=== PATIENT | male | born 1965 | race Caucasian/White ===

== ENCOUNTER 2021-07-22 11:03 | Outpatient (CLI) | payer MEDICAID, SELFPAY ==
[2021-07-22 12:10] LABS: Absolute Lymphocyte Count 1.22 X10^3/uL (0.83-4.51); Absolute Neutrophil Count 4.2 X10^3/uL (2.0-7.7); Basophil# 0.04 X10^3/uL; Basophil% 0.6 % (0-1); Eosinophil# 0.17 X10^3/uL; Eosinophils% 2.7 % (0-5); Hematocrit 43.7 % (40-54); Lymphocyte # 1.22 X10^3/ul (0.83-4.51); Lymphocyte % 19.5 % (19-41); Mean Corp Hgb Conc 34.3 g/dL (32-36); Mean Corpuscular Hgb 29.7 pg (27.0-32.0); Mean Corpuscular Volume 86.5 fL (80-94); Mean Platelet Vol. 9.8 fl (6.2-12.0); Monocyte# 0.57 X10^3/uL; Monocyte% 9.1 % (0-10); NRBC Flagged by Analyzer 0 % (0-5); Neutrophil # 4.24 X10^3/uL (2.7-7.7); Neutrophil % 67.8 % (47-70); Platelet Count 223 K/mm3 (150-450); RBC Distribution Width CV 11.9 % (11.6-14.6); RBC Distribution Width SD 37.8 fl (35.1-43.9); Red Blood Count 5.05 M/mm3 (4.6-6.2); White Blood Count 6.3 K/mm3 (4.4-11.0)
[2021-07-22 12:26] LABS: AST(SGOT) 17 U/L (15-37); Alanine Aminotransfer ALT/SGPT 35 U/L (16-61); Albumin, Serum 3.6 g/dL (3.2-5.0); Alkaline Phosphatase 75 U/L (45-117); Anion Gap 4 (5-15); BUN 18 mg/dL (7-18); BUN/Creat Ratio 20.8 RATIO (10-20); Calcium,Total 8.9 mg/dL (8.5-10.1); Chloride 108 mmol/L (98-107); Cholesterol 185 mg/dL (200); Creatinine, Serum 0.86 mg/dL (0.70-1.30); EST Glomerular Filtration Rate 97 mL/min (>60); Est Glom Filt Rate - Afr Amer 117 mL/min (>60); Globulin 3.7 g/dL (2.2-4.2); Glucose 107 mg/dL (74-106); High Density Lipoprotein 37 mg/dL; Potassium 3.9 mmol/L (3.5-5.1); Protein, Total 7.3 g/dL (6.4-8.2); Sodium Level 139 mmol/L (136-145); Triglycerides 169 mg/dL; Very Low Density Lipoprotein 34 mg/dL (5-40)
== END 2021-07-22 23:59 | disposition home or self-care (01) ==
LOC: BIMLAB 11:03
PROVIDERS: PCP Internal Medicine; Visit Provider Internal Medicine
DX: K21.9 Gastro-esophageal reflux disease without esophagitis (principal); E66.3 Overweight
CPT/HCPCS: 36415; 80053; 80061; 85025

== ENCOUNTER → 2022-07-23 | Outpatient (CLI) | payer BC, SELFPAY ==
[2022-07-23 12:24] LABS: Absolute Lymphocyte Count 1.22 X10^3/uL (0.83-4.51); Absolute Neutrophil Count 3.1 X10^3/uL (2.0-7.7); Basophil# 0.05 X10^3/uL; Eosinophil# 0.19 X10^3/uL; Eosinophils% 3.7 % (0-5); Hematocrit 43.7 % (40-54); Lymphocyte # 1.22 X10^3/ul (0.83-4.51); Lymphocyte % 23.5 % (19-41); Mean Corp Hgb Conc 34.3 g/dL (32-36); Mean Corpuscular Hgb 30.4 pg (27.0-32.0); Mean Corpuscular Volume 88.5 fL (80-94); Mean Platelet Vol. 9.6 fl (6.2-12.0); Monocyte# 0.58 X10^3/uL; Monocyte% 11.2 % (0-10); NRBC Flagged by Analyzer 0 % (0-5); Neutrophil # 3.13 X10^3/uL (2.7-7.7); Neutrophil % 60.2 % (47-70); Platelet Count 226 K/mm3 (150-450); RBC Distribution Width CV 12.1 % (11.6-14.6); RBC Distribution Width SD 39.1 fl (35.1-43.9); Red Blood Count 4.94 M/mm3 (4.6-6.2); White Blood Count 5.2 K/mm3 (4.4-11.0)
[2022-07-23 13:00] LABS: ALB/GLOB Ratio 1.1 RATIO (0.9-2.4); AST(SGOT) 14 U/L (15-37); Alanine Aminotransfer ALT/SGPT 26 U/L (16-61); Albumin, Serum 3.6 g/dL (3.2-5.0); Alkaline Phosphatase 77 U/L (45-117); Anion Gap 7 (5-15); BUN 23 mg/dL (7-18); BUN/Creat Ratio 24.9 RATIO (10-20); Chloride 107 mmol/L (98-107); Cholesterol 158 mg/dL (200); Creatinine, Serum 0.92 mg/dL (0.70-1.30); EST Glomerular Filtration Rate 89 mL/min (>60); Est Glom Filt Rate - Afr Amer 108 mL/min (>60); Globulin 3.3 g/dL (2.2-4.2); Glucose 107 mg/dL (74-106); High Density Lipoprotein 35 mg/dL; PSA,Total - Annual Screen 9.92 ng/mL (0.00-4.00); Protein, Total 6.9 g/dL (6.4-8.2); Sodium Level 140 mmol/L (136-145); Triglycerides 95 mg/dL; Very Low Density Lipoprotein 19 mg/dL (5-40)
== END | disposition home or self-care (01) ==
LOC: BIMLAB 10:32
PROVIDERS: PCP Internal Medicine; Referring Provider Internal Medicine; Visit Provider Internal Medicine
DX: Z00.00 Encounter for general adult medical examination without abnormal findings (principal); Z12.5 Encounter for screening for malignant neoplasm of prostate
CPT/HCPCS: 36415; 80053; 80061; 84153; 85025; G0103

== ENCOUNTER → 2022-09-30 | Outpatient (CLI) | payer BC, SELFPAY | END | disposition home or self-care (01) | LOC: PAVLAB 09:40 | PROVIDERS: PCP Internal Medicine; Referring Provider Urology; Visit Provider Urology | DX: R97.20 Elevated prostate specific antigen [PSA] (principal) | CPT/HCPCS: 36415; 84153 ==

== ENCOUNTER → 2022-10-06 | Outpatient (CLI) | payer BC, SELFPAY ==
--- NOTE | 2022-10-06 08:15 | RAD_ITS ---
STUDY: X-RAY - ORBITS REASON FOR EXAM: Male, 57 years old. MRI CLEARANCE TECHNIQUE: 2 view(s) of the orbits were obtained. COMPARISON: None. FINDINGS: Normal bilateral orbits without a metallic orbital foreign body. Normal visualized facial bones. Mucosal thickening of the right maxillary sinus. The soft tissue structures are unremarkable. RAD/Orbits for Foreign Body IMPRESSION: No demonstrated metallic orbital foreign body. The patient is cleared for an MRI examination. Mucosal thickening of the right maxillary sinus. Electronically Signed: Zackary Odonnell MD at 8:48 EDT ,
--- NOTE | 2022-10-06 08:17 | MRI_ITS ---
STUDY: MR PELVIS WITH AND WITHOUT CONTRAST (PROSTATE) REASON FOR EXAM: Male, 57 years old. Elevated PSA TECHNIQUE: Standardized multiparametric prostate MRI with T1, T2, DWI/ADC sequences were obtained in 3 orthogonal planes, and dynamic contrast enhancement sequences. 19 ml of Clariscan contrast material was administered intravenously for the contrast portion of the examination. COMPARISON: None. FINDINGS: The prostate volume measures 37 mm3. The contours of the prostate gland are smooth. There is not mass effect on the bladder base. The transition zone is homogenous. PI-RADS DWI score 3 - Focal mildly hypointense on ADC and isointense/mildly hyperintense on high b-value DWI. PI-RADS T2W score 4 - Non-circumscribed, homogeneous, moderately hypointense, and 0.7 x 1.0 cm in greatest dimension. Contrast enhancement no early or contemporaneous enhancement; or diffuse multifocal enhancement NOT corresponding to a focal finding on T2W and/or DWI or focal ehancement responding to a lesion demonstrating features of BPH onT2WI (including features of extruded BPH in the PZ). The nodule is seen in the lateral right transitional zone towards the prostate gland base on image 15 series 9 and image 14 series 6. The peripheral zone is homogenous. PI-RADS DWI score 1 - No abnormality (normal) on ADC or high b-value DWI. PI-RADS T2W score 1 - Uniformaly hyperintense (normal). Contrast enhancement no early or contemporaneous enhancement; or diffuse multifocal enhancement NOT corresponding to a focal finding on T2W and/or DWI or focal enhancement responding to a lesion demonstrating features of BPH onT2WI (including features of extruded BPH in the PZ). The seminal vesicles demonstrate normal margins and T2 signal pattern. No mass lesion or invasion depicted. The rectoprostatic angles are normal. Urinary bladder is normal without wall thickening. The vascular structures of the are normal. The visualized hollow viscus structures are normal. No bone marrow edema or mass lesion depicted. MRI/Pelvis W/WO Contrast IMPRESSION: 1. PIRADS v2.1 2019 -- 4 - High (clinically significant cancer is likely). Electronically Signed: Duncan Lamb (Brooks), at 13:30 EDT Reading Location ID and State: / [place] , Service support ,
== END | disposition home or self-care (01) ==
LOC: MRI 07:44
PROVIDERS: PCP Internal Medicine; Referring Provider Urology; Visit Provider Urology
DX: R97.20 Elevated prostate specific antigen [PSA] (principal)
CPT/HCPCS: 70030; 72197; A9575

== ENCOUNTER → 2022-11-13 | Outpatient (CLI) | payer BC, SELFPAY ==
--- NOTE | 2022-11-13 | IMM_PTH ---
PATIENT: EUSEBIO JOYA LOC: [facility] U#:[id number] AGE/SX: 57/M ROOM: RE11/13/[address]: Dr. Rich Jackson MD : 1965 BED: DIS: 11/13/2022 SPEC #: [id number] RECD: 11/17/22 13:30 STATUS: NARAYAN REQ #: [id number] CEFERINO: 11/13/22 00:[address]: Rich Jackson DEPT: IMMUNOHISTOCHEMISTRY RECD BY: Cheryl Jimenez ENTERED: 11/17/22 13:31 SP TYPE: IMMUNO OTHR DR: Dr. Shante Zapata MD Tissues: B - PROSTATE RIGHT C - PROSTATE RIGHT Procedures: 34BE12 (add) P40 (add) 34BE12 (initial) PHYSICIAN & INSTITUTION [place] [phone] SPECIMEN INFORMATION: Tissue Source: B - Right prostate, mid, core biopsy, C - Right prostate, base, core biopsy Clinical Info: Elevated PSA Specimen Number: [id number] B & C CPT code: 73330, 90763 x3 METHODOLOGY: Deparaffinized sections of prefer/formalin-fixed tissue or PAP/DQ stained slides are incubated with monoclonal/polyclonal antibodies/oligonucleotide probes. Localization is made via biotin free immunoperoxidase method. Appropriate controls are performed and reacted as expected. Results on target cell population are indicated in the following table: RESULTS: ANTIBODY / CLONE RESULT Block B P40 (BC28) negative 34BE12 (34BE12) negative Block C P40 (BC28) negative 34BE12 (34BE12) negative These tests were developed and their performance characteristics determined by [facility]. They may not have been cleared or approved by the U.S. Food and Drug Administration. The FDA has determined that such clearance or approval is not necessary. The above immunohistochemical/dualISH markers are ordered and reviewed by the Pathologist. INTERPRETATION: B. Right prostate, mid, core biopsy: A minute focus of adenocarcinoma. C. Right prostate, base, core biopsy: Adenocarcinoma. MELISSA:samia 11/18/2022
--- NOTE | 2022-11-13 08:00 | PROSBIL_PTH ---
PATIENT: EUSEBIO JOYA LOC: [facility] U#:[id number] AGE/SX: 57/M ROOM: RE11/13/[address]: Dr. Rich Jackson MD : 1965 BED: DIS: 11/13/2022 SPEC #: [id number] RECD: 11/13/22 16:28 STATUS: NARAYAN REAltagracia #: [id number] CEFERINO: 11/13/22 08:[address]: Rich Jackson DEPT: SURGICAL PATHOLOGY RECD BY: Trisha Le ENTERED: 11/14/22 07:47 SP TYPE: PROST BX HILARY DR: Dr. Shante Zapata MD Tissues: A - PROSTATE RIGHT B - PROSTATE RIGHT C - PROSTATE RIGHT D - PROSTATE LEFT E - PROSTATE LEFT F - PROSTATE LEFT Procedures: PROSTATE BX HEADER OPERATION: Prostate biopsy PRE-OP DIAGNOSIS: Elevated PSA TISSUE SUBMITTED: A - Right apex, B - Right mid, C - Right base, D - Left apex, E - Left mid, F - Left base MICROSCOPIC DIAGNOSIS A. Right prostate, apex, core biopsy: Focal high-grade prostatic intraepithelial neoplasia (HGPIN). B. Right prostate, mid, core biopsy: A minute focus of prostatic adenocarcinoma. Amandeep grade: 3+3=6 Number of cores involved: 1/2 Proportion of tissue involved: <5% Perineural invasion: Not identified. Greatest tumor length: <0.1 cm Focal high-grade prostatic intraepithelial neoplasia (HGPIN). See comment. C. Right prostate, base, core biopsy: Prostatic adenocarcinoma. Amandeep grade: 3+3=6 Number of cores involved: 1/2 Proportion of tissue involved: ~5% Perineural invasion: Not identified. Greatest tumor length: 0.2 cm Focal high-grade prostatic intraepithelial neoplasia (HGPIN). See comment. D. Left prostate, apex, core biopsy: Prostatic adenocarcinoma. Taylor grade: 3+3=6 Number of cores involved: 1/1 Proportion of tissue involved: ~50% Perineural invasion: Not identified. Greatest tumor length: 0.5 cm E. Left prostate, mid, core biopsy: Prostatic adenocarcinoma. Taylor grade: 4+3=7 Number of cores involved: 1/1 Proportion of tissue involved: 40% Perineural invasion: Not identified. Greatest tumor length: 0.4 cm F. Left prostate, base, core biopsy: Focal high-grade prostatic intraepithelial neoplasia (HGPIN). SJ:samia 11/17/2022 COMMENT B & C. Immunohistochemistry ([id number]) supports the above diagnosis. Case has been reviewed in consultation with Dr. Gooden who concurs with the above diagnosis. IDC:SUNIL MICROSCOPIC DESCRIPTION Slides are reviewed. GROSS DESCRIPTION A - Received is one container designated prostate, right apex. The specimen consists of two elongated fragments of light costello-white soft tissue each measuring 1.0 cm in length and 0.1 cm in diameter. The specimen is totally submitted in one cassette. B - Received is one container designated prostate, right mid. The specimen consists of two elongated fragments of light costello-white soft tissue each measuring 1.0 cm in length and 0.1 cm in diameter. The specimen is totally submitted in one cassette. C - Received is one container designated prostate, right base. The specimen consists of two elongated fragments of light costello-white soft tissue each measuring 1.5 cm in length and 0.1 cm in diameter. The specimen is totally submitted in one cassette. D - Received is one container designated prostate, left apex. The specimen consists of one elongated fragment of light costello-white soft tissue measuring 1.0 cm in length and 0.1 cm in diameter. The specimen is totally submitted in one cassette. E - Received is one container designated prostate, left mid. The specimen consists of one elongated fragment of light costello-white soft tissue measuring 1.0 cm in length and 0.1 cm in diameter. The specimen is totally submitted in one cassette. F - Received is one container designated prostate, left base. The specimen consists of one elongated fragment of light costello-white soft tissue measuring 1.0 cm in length and 0.1 cm in diameter. The specimen is totally submitted in one cassette. / AM:samia 11/14/2022 TC:0 [facility]: [id number] x6
== END | disposition home or self-care (01) ==
LOC: LABSPEC 16:29
PROVIDERS: PCP Internal Medicine; Referring Provider Urology; Visit Provider Urology
DX: C61 Malignant neoplasm of prostate (principal); R97.20 Elevated prostate specific antigen [PSA]; N42.31 Prostatic intraepithelial neoplasia
CPT/HCPCS: 88305; 88341; 88342; G0416

== ENCOUNTER → 2022-11-27 | Outpatient (CLI) | payer BC, SELFPAY ==
--- NOTE | 2022-11-27 06:53 | CT_ITS ---
EXAM: CT Abdomen And Pelvis WO/W Contrast Injection HISTORY: PROSTATE CANCER, NO TX YET TECHNIQUE: Routine protocol CT abdomen pelvis. Without and with IV contrast. IV Contrast: 100 ML ISOVUE 370 . Oral Contrast: without. Sagittal and coronal images were reconstructed. RADIATION DOSAGE (If Supplied By Facility): CTDIvol = ( 16.14 ) mGy, DLP = ( 1949.21 ) mGycm Individualized dose optimization techniques were used for this CT. COMPARISON: MRI pelvis/prostate 10/06/2022. LIMITATIONS: None. FINDINGS: LOWER CHEST: 5 mm nodule right lower lobe. LIVER: Unremarkable. GALLBLADDER/BILE DUCTS: Unremarkable. PANCREAS: Unremarkable. SPLEEN: Unremarkable. ADRENAL GLANDS: Unremarkable. KIDNEYS / URETERS: Tiny cyst in the right kidney. Otherwise unremarkable. No hydronephrosis. BOWEL / MESENTERY: Scattered diverticula throughout the colon. No bowel obstruction. APPENDIX: Identified and normal. No evidence of acute appendicitis. PERITONEUM: No free air. No free fluid. VESSELS: Abdominal aorta is normal caliber. RETROPERITONEUM: Unremarkable. REPRODUCTIVE ORGANS: Prostate mildly enlarged. BLADDER: Unremarkable. ABDOMINAL WALL: Small left inguinal hernia contains only fat, no bowel. BONES: Degenerative changes of the lumbar spine. No suspicious lytic or blastic lesion. OTHER: None. CT/CT Abd/Pelvis W/WO Contrast IMPRESSION: 1. No acute intra-abdominal findings. 2. Right lower lobe 5 mm pulmonary nodule is indeterminate. Consider further imaging with CT chest for complete assessment. Electronically Signed: Tatyana Buenrostro MD at 19:29 EDT ,
== END | disposition home or self-care (01) ==
LOC: CT 06:52
PROVIDERS: PCP Internal Medicine; Referring Provider Urology; Visit Provider Urology
DX: C61 Malignant neoplasm of prostate (principal)
CPT/HCPCS: 74178; Q9967

== ENCOUNTER → 2022-12-04 | Outpatient (CLI) | payer BC, SELFPAY ==
--- NOTE | 2022-12-04 09:00 | NM_ITS ---
CLINICAL: Male, 57 years old. PROSTATE CANCER, NEW DX -- NO PATIENT COMPLAINTS WHOLE BODY NUCLEAR BONE SCAN TECHNIQUE: Following the IV administration of 25 mCi of Tc MDP, whole body bone imaging was performed with a gamma camera following a three hour delay. COMPARISON STUDIES : Comparison is made with prior CT scan of the abdomen pelvis dated November 27, 2022. FINDINGS: Mild increased uptake is seen at the level of both knee joints suggestive of mild degenerative change. NM/Bone Scan Whole Body IMPRESSION: No evidence of bony metastasis. Electronically Signed: Zackary Odonnell MD at 13:52 EDT ,
== END | disposition home or self-care (01) ==
LOC: NM 08:59
PROVIDERS: PCP Internal Medicine; Referring Provider Urology; Visit Provider Urology
DX: C61 Malignant neoplasm of prostate (principal)
CPT/HCPCS: 78306; A9500

== ENCOUNTER → 2022-12-05 | Outpatient (CLI) | payer BC, SELFPAY ==
--- NOTE | 2022-12-05 07:57 | CT_ITS ---
STUDY: CT CHEST WITHOUT CONTRAST REASON FOR EXAM: Male, 57 years old. Abnormal Finding on CT. Lung Nodule RADIATION DOSAGE (If Supplied By Facility): CTDIvol = ( 14.30 ) mGy, DLP = ( 553.78 ) mGycm TECHNIQUE: Transaxial imaging was performed without the administration of intravenous contrast material. Multiplanar coronal and sagittal images were reformatted. Individualized dose optimization techniques were used for this CT. COMPARISON: No relevant priors. FINDINGS: CHEST Benign-appearing bilateral axillary lymph nodes. This evidence of scarring at both lung apices. Stable 5 mm noncalcified nodule in the peripheral lateral aspect of the right lower lobe as seen on axial image #89. 3 mm noncalcified nodule is seen in the posterior aspect of the lingular segment of the left upper lobe. There is no demonstrated pleural abnormality. There are calcifications of the coronary arteries. Normal mediastinum. Normal hilar regions. Normal unenhanced pulmonary arteries. Normal aorta arch and descending thoracic aorta. There are degenerative changes of the thoracic spine. Small sliding hiatal hernia. CT/Chest without Contrast IMPRESSION: 5 mm noncalcified nodule in the peripheral lateral aspect of the right lower lobe as well as a 3 mm noncalcified nodule in the posterior aspect of the lingular segment of the left upper lobe. 12 month follow-up examination is recommended. Electronically Signed: Zackary Odonnell MD at 9:31 EDT ,
== END | disposition home or self-care (01) ==
LOC: CT 07:57
PROVIDERS: PCP Internal Medicine; Referring Provider Internal Medicine; Visit Provider Internal Medicine
DX: R93.5 Abnormal findings on diagnostic imaging of other abdominal regions, including retroperitoneum (principal); R91.1 Solitary pulmonary nodule
CPT/HCPCS: 71250

== ENCOUNTER 2023-02-04 07:55 | Observation (INO) | payer BC, SELFPAY ==
[2023-01-23 12:42] LABS: Hematocrit 41.4 % (40-54); Hemoglobin 13.9 g/dL (13.0-16.5); Mean Corp Hgb Conc 33.6 g/dL (32-36); Mean Corpuscular Hgb 30.2 pg (27.0-32.0); Mean Corpuscular Volume 89.8 fL (80-94); Platelet Count 200 K/mm3 (150-450); RBC Distribution Width SD 39.6 fl (35.1-43.9); Red Blood Count 4.61 M/mm3 (4.6-6.2); White Blood Count 6.1 K/mm3 (4.4-11.0)
[2023-02-04] VITALS (13 sets, daily range): BP systolic 107–138; BP diastolic 59–82; PULSE 56–77; RESP 12–16; TEMP 36.4–37.2; O2SAT 92–100; BMI 26.3
--- NOTE | 2023-02-04 | PROST_PTH ---
PATIENT: EUSEBIO JOYA LOC: [facility] U#:[id number] AGE/SX: 57/M ROOM: MT315 RE02/04/[address]: Dr. Rich Jackson MD : 1965 BED: 1 DIS: 02/05/2023 SPEC #: [id number] RECD: 02/04/23 11:42 STATUS: NARAYAN BOATENG #: [id number] CEFERINO: 02/04/23 00:[address]: Rich Jackson DEPT: SURGICAL PATHOLOGY RECD BY: Trisha Le ENTERED: 02/04/23 13:25 SP TYPE: PROSTATE OTHR DR: Dr. Shante Zapata MD Tissues: A - Lymph node of pelvis, NOS B - Lymph node of pelvis, NOS C - Prostate, NOS Procedures: Surgery Specimen Level V Surgery Specimen Level HEADER OPERATION: Robotic laparoscopic radical prostatectomy PRE-OP DIAGNOSIS: [place] 7 prostate cancer TISSUE SUBMITTED: A - Left pelvic lymph node, B - Right pelvic lymph node, C - Prostate MICROSCOPIC DIAGNOSIS A. Left pelvic lymph node, regional dissection: One lymph node, negative for metastatic carcinoma. B. Right pelvic lymph node, regional dissection: One lymph node, negative for metastatic carcinoma. C. Prostate, radical prostatectomy: Prostatic adenocarcinoma. See cancer summary in the comment section. SJ:samia 02/09/2023 COMMENT C. PROSTATE CANCER (RADICAL) SUMMARY: Procedure: Radical Prostatectomy Prostate Size: Weight: 42.2 gm Size: 3.5 cm transversely, 3.5 cm anterior-posteriorly and 3.5 cm craniocaudally Histologic Type: Acinar adenocarcinoma Histologic Grade: Grade group 2 (Amandeep score: 3+4=7) Tumor Quantitation: Estimated percentage of prostate involved by tumor: ~10% Tumor involves apical portion of the right lobe and measures 1.0 x 0.5 cm in greatest dimension (measured microscopically). Tumor involves apical and mid portion of the left lobe prostate and measures approximately 1.5 x 1.0 cm (measured microscopically). Extraprostatic Extension: Not identified Urinary Bladder Neck Invasion: Not identified Seminal Vesicle Invasion: Not identified Lymphvascular Invasion: Not identified Perineural Invasion: Present, focal Margins: Focally involved by invasive carcinoma. Linear length of positive margin: 3 mm Focality: Unifocal Location of prostate positive margin: Right apical Amandeep pattern at positive margin: 3+3=6 Treatment effect: No known presurgical therapy. Regional Lymph Nodes: Number of lymph nodes involved by carcinoma: 0 Total number of lymph nodes examined: 2 Additional Pathologic Findings: Chronic inflammation * Focal high-grade prostatic intraepithelial neoplasia (HGPIN). Ancillary Studies: Not performed Clinical History: Please make reference to previous specimen ([id number]) right prostate mid and base with diagnosis of prostatic adenocarcinoma and left prostate apex and mid with diagnosis of prostatic adenocarcinoma. PATHOLOGIC STAGE: pT2 pN0 pMx The above summary is in compliance with [employer] (CAP) Cancer Protocols Checklist and [place] [employer] Committee on Cancer (AJCC), Staging Manual, 8th Ed. Case has been reviewed in consultation with Dr. Gooden who concurs with the above diagnosis. IDC:AM MICROSCOPIC DESCRIPTION Slides are reviewed. GROSS DESCRIPTION A - Received in fixative is one container labeled with the patient's name and designated left pelvic lymph node. The specimen consists of a piece of yellow adipose tissue measuring 3.5 x 1.5 x 1.0 cm. One lymph node is identified. The entire specimen is submitted in two cassettes as follows: 1 - one bisected lymph node, 2 - rest of the specimen. B - Received in fixative is one container labeled with the patient's name and designated right pelvic lymph node. The specimen consists of a piece of yellow adipose tissue measuring 3.5 x 1.8 x 0.7 cm. One lymph node is identified. The specimen is bisected and submitted entirely in two cassettes. C - Received in fixative is one container labeled with the patient's name and designated prostate. The specimen consists of a radical prostatectomy specimen consisting of prostate and bilateral seminal vesicles and vas deferens. The specimen weighs 42.2 gm. The prostate measures 3.5 cm transversely, 3.5 cm anterior-posteriorly and 3.5 cm craniocaudally. The right seminal vesicle measures 3.5 x 2.0 x 1.0 cm and right vas deferens measures 3.5 cm in length and 0.5 cm in diameter. The left seminal vesicle measures 3.0 x 1.5 x 1.0 cm and the left vas deferens measures 3.0 cm in length and 0.5 cm in diameter. The prostate is inked as follows: anterior surface - yellow, posterior surface - black, right lateral surface - blue, left lateral surface - green. The bilateral seminal vesicles and vas deferens are inked as follows: Posterior surface bilateral seminal vesicle and vas deferens - black, anterior surface right seminal vesicle and vas deferens - blue and anterior left seminal vesicle and vas deferens - green. Sections do not reveal any mass lesion. [employer] sections are submitted in 19 cassettes as follows: 1 - right seminal vesicle and vas deferens, 2 - left seminal vesicle and vas deferens, 3 - apical (urethral) margin, enface, 4 & 5 - bladder neck and prostate base margin, enface, 6-9 - apical portion prostate, 10-13 - middle portion prostate, 14-19 - basal portion prostate. Almost 95% of the prostate is submitted. Sections are submitted after additional fixation. / SJ:rg 02/05/2023 TC:0 CPT: 12848 x2, 04249
[2023-02-04] MEDS: Lactated Ringers 1,000 ML 15 ML IV ×2 (06:40→10:31)
--- NOTE | 2023-02-04 07:51 | PCM.HP.STD ---
HPI - General General Date of Service: 02/04/23 Chief Complaint: Prostate cancer HPI Narrative EUSEBIO JOYA, is a 57 M who presents for radical prostatectomy he has Amandeep 7 prostate cancer plan for bilateral nerve sparing radical prostatectomy [facility] Medical History (Updated 01/23/23 @ 09:03 by Isamar Borrero) Abnormal abdominal CT scan Anxiety and depression Colon cancer screening Elevated blood pressure reading without diagnosis of hypertension Elevated PSA Esophageal abnormality GERD (gastroesophageal reflux disease) History of edema History of irregular heartbeat Lung nodule Lung nodule seen on imaging study Non-smoker Over weight Preventative health care Prostate cancer Restless legs Skin mole Sleep apnea Wears glasses Home Medications esomeprazole magnesium 20 mg tablet,delayed release 40 mg PO DAILY GERD 07/09/21 [History Last Taken Unknown] cholecalciferol (vitamin D3) 125 mcg (5,000 unit) tablet (Vitamin D3) 125 mcg PO DAILY SUPPLEMENT 01/23/23 [History Last Taken Unknown] Allergy/AdvReac Type Severity Reaction Status Date / Time lactose AdvReac PT UNSURE Verified 02/04/23 06:29 OF REACTION Family History Father Cancer pancreatic Heart disease Diabetes Mother Myocardial infarction, Onset Age: 83 Hypertension Hyperlipemia Surgical History (Updated 01/23/23 @ 09:03 by Isamar Borrero) History of colonoscopy History of esophagogastroduodenoscopy (EGD) History of hernia surgery History of tonsillectomy Social History Smoking Status: Never smoker alcohol intake: never substance use type: does not use what type of physical activity do you participate in: none Vital Signs Vital Signs Vital Signs: 02/04/23 06:31 02/04/23 06:31 Temperature 98.6 F Temperature Source Temporal Pulse Rate 58 L Respiratory Rate 16 Respiratory Pattern Normal Blood Pressure 121/80 H Blood Pressure Mean 93 Blood Pressure Source Monitor Blood Pressure Position Semi-Fowlers Blood Pressure Location Left Arm Pulse Ox 94 Oxygen Delivery Method Room Air Weight Weight: 93 kg Body Mass Index (BMI) 26.3 Results Lab / Micro Data 01/23/23 12:27
--- NOTE | 2023-02-04 07:54 | PCM.DC ---
Discharge Instructions Diet Discharge Diet: No restrictions Activity Discharge Activity: Return to Normal Activity Return to work on:: 03/18/23 Lifting Restrictions: no lifting for 6 weeks Dressing / Incision Catheter: Rodriguez to leg bag and Rodriguez to large bag Drain: [place] Follow Up Care Please Follow Up With: Rich Jackson MD When: 10 days, call for appt Test Results: Test results from this visit will be discussed in further detail at your follow-up appointment, if applicable. Discharge Plan Admission Primary Reason for Your Visit: prostate cancer Attending Provider: Rich Jackson Primary Care Provider: Shante Zapata Discharge Orders/Prescriptions Prescriptions: New ciprofloxacin HCl [Cipro] 500 mg tablet 500 mg PO BID Qty: 20 0RF docusate sodium [Colace] 100 mg capsule 100 mg PO BID Qty: 20 0RF oxycodone 5 mg tablet 5 mg PO Q6H PRN (Reason: pain) 7 Days Qty: 14 0RF No Action esomeprazole magnesium 20 mg tablet,delayed release (DR/EC) 40 mg PO DAILY cholecalciferol (vitamin D3) [Vitamin D3] 125 mcg (5,000 unit) tablet 125 mcg PO DAILY Referrals / Follow Up: Shante Zapata MD [Primary Care Provider] - Rich Jackson MD [Med Staff - Active Staff] - Disposition Disposition (needs filled in before D/C Order can be placed): Home, Self Care
[2023-02-04] MEDS: Cefazolin 2 GM in 0.9% Normal Saline (100mL Bag) 100 ML IV (08:04)
[2023-02-04] MEDS: Bupivacaine Mpf 0.5% 30 ML VIAL (10:43)
--- NOTE | 2023-02-04 10:58 | OP.PCM_ITS ---
Report of Operation Date of Procedure: 02/04/23 Pre-Operative Diagnosis: Prostate cancer Post-Operative Diagnosis: Same Surgery/Procedure Performed:: Laparoscopic robotic assisted radical prostatectomy bilateral nerve sparing and bilateral pelvic lymph node dissection Description of Surgical Findings:: Patient presented to the hospital for treatment of his prostate cancer with radical prostatectomy. In the preoperative setting we discussed the options of management for his prostate cancer including active surveillance, radiation treatments, radioactive seeds, and radical robotic prostatectomy. We discussed the side effects of surgery including the potential to lose erections. We discussed the potential to have bladder control problems with stress incontinence which can be temporary or permanent. We discussed the risk of the surgery including the risk of general anesthetic, risk of bleeding, risk of infection, and risk of formation of hernia either incisional hernia or inguinal hernia. After long discussion with the patient the preoperative setting and also reviewed this in the preop area patient signed the consent form and we proceeded with a radical prostatectomy. Patient was taken back to the operating room he was identified, time out procedure was performed and he was placed supine on the table he underwent general anesthesia with intubation. The abdomen was shaved prepped and draped in usual sterile fashion as well as the penis and testicles. A 16 Cameroonian catheter was placed into the bladder with clear return of urine. I then made an incision in the umbilicus and dissected down to the fascia advance a Veress needle into the peritoneal cavity and insufflated the peritoneal cavity with CO2 gas. I then placed a 12 mm trocar above the umbilicus. I then visualized the placement of the rest of the trochars, I placed a right arm robotic trocar, and air seal trocar, a suction port 5 mm trocar. And on the left side I placed 2 robotic arms. Once all the trochars were in placed the patient was put in steep Trendelenburg. And the robot was docked the arms were docked and then I placed the 0 degree camera through the robotic arm and also used a 30 degree camera during certain parts of the case. I used scissors in the right arm, prograsp in the third arm, and a bipolar in the second arm. Initial dissection was to free the sigmoid colon off the lateral wall this was done by meticulously dissecting off the peritoneum and the sigmoid colon off the left lateral wall. This then allowed the prograsp to retract the sigmoid colon out of the pelvis. I then went below the bladder and identified the vas deferens incised the peritoneum over the vas deferens and traced the vas deferens below the bladder to the prostate and identified the right and left vasa deferens. Below behind the vas deferens then the seminal vesicles were identified. I then dissected the seminal vesicle free using pinpoint electrocautery and then we identified the other seminal vesicle and then dissected this using pinpoint electrocautery I then elevated the vas deferens and several vesicles off the prostate and was able to sweep the Denonvilliers' fascia off the prostate posteriorly all the way up to the apex of the prostate. Working laterally I made sure I went as lateral as possible to sweep the Denonilliers' fascia off the posterior aspect of the prostate and worked my way back, I then transected the vas deferens and the left and right side the seminal vesicles were then dissected free. And then I pulled out of the pelvis. At this point the bladder was dropped creating the space of Retzius with the bladder on traction with the fourth arm. Using electrocautery I dissected in the anterior peritoneal fascia and then created the space of Retzius dissecting towards the prostate. The pelvic lymph node dissection was then performed both side. Rhe right pelvic lymph nodes the nodes that were taken on the right side extended from the right iliac artery lateral pelvic sidewall up to the junction of the artery and the lymph nodes and down to the obturator nerve and then also below the cold work operator nerve all the lymph nodes were removed during to remove those lymph nodes we used clips and electrocautery to control small blood vessels and also the control lymphatic. I then went to the left side and again did an extensive lymph node dissection starting of the left iliac artery extending the left iliac vein on the lateral sidewall down to the obturator nerve and the left side beyond the cold work operator nerve down further behind it cleaning out all the lymphatic tissue all this tissue was sent off as a specimen we use clips and electrocautery during the dissection. At the end we cleaned out all the lymphatic tissue on the right pelvic wall and all the lymphatic tissue in the left pelvic wall. The prostate was then cleaned of the fat over the prostate and the fourth arm was used to retract the bladder and place traction. I then identified the endopelvic fascia that was overlying the prostate on the right side I incised endopelvic fascia and wwept the levator muscles off the prostate all the way to the apex on the right side, I then worked my way anterior to the prostate then transected to the puboprostatic ligament and the underlying dorsal vein complex was not injured. I then went to the other side and identified the endopelvic fascia in the left side incised in a fashion the left side and swept the levator muscles off the prostate on the left side all the way up to the apex the puboprostatic ligament on the left side was then dissected and transected I then freed up the fascia overlying the dorsal vein complex. I then used the prograsp to encircled the dorsal vein complex with the prograsp and then switched over to the right and left needle water taxi driver and suture ligated the dorsal vein complex above the prograsp. The prograsp was then placed back in the bladder and put back on traction I then identified the junction between the bladder and the prostate and dissected down between the bladder and the prostate untilI came across the catheter we then dissected posteriorly to the bladder and prostate to free the prostate and the bladder off each other and the muscles between the bladder and the prostate was then cauterized to free up the bladder. I then went on top of the prostate and identified the endopelvic fascia on top of the prostate this was incised all the way to the apex and then we swept the endopelvic fascia off the prostate laterally and then identified the plane between endopelvic fascia and the prosthetic pseudocapsule and swept the fascia laterally until reaching the course of the neurovascular bundles and then released the neurovascular bundles off the prostate laterally all the way back in a retrograde fashion back to the junction of the pedicles then the prostate was placed on traction with the fourth arm pulling the prostate laterally identified the pedicle to the prostate between the seminal vesicles and the and the neurovascular bundle and this was taken using sequential small hemolocks. After the pedicle was taken the I then dissected underneath the prostate sweeping the neurovascular bundle off the prostate we able to follow the nice smooth plane between the neurovascular bundle and the pseudocapsule all the way to the apex once this was identified we swept this up all the way up to the apex and there was perfect nerve sparing on the right side. Then went to the left side the prostate identified the endopelvic fascia over the left side of the prostate I incised the endopelvic fascia all the way to the apex and then swept this off laterally I then released the neurovascular bundles on the left side of the prostate sweeping him off the prostate laterally I then elevated the prostate up up with the prostate and traction identified the pedicle to the prostate on the left side and then the pedicles taken with sequential Hem-o-davy clips I then was able to dissected the neurovascular bundle off the left posterior aspect the prostate this was a perfect dissection all the way up on the left side following the pseudocapsule all the way up the left side until we reached the apex of the prostate. After the both the neurovascular bundles has been swept off the posterior to the prostate I then went above and transected the dorsal vein complex there was minimal to no bleeding but then dissected down to the urethra and circumfencial dissected around the urethra I then switched the right and left arm with the needle drivers and I suture-ligated the dorsal vein complex again just to ensure that there was no bleeding from the dorsal vein complex. I then transected through the urethra with scissors and the prostate was then freed and released off the prostate bed and put an Endo Catch bag. At this point the bladder neck was reconstructed and then an anastomosis was performed between the prostate and the bladder with a 3 oh V-Loc stitch in a running fashion starting from the bladder neck at the 6 o'clock position working to the 12 o'clock position with continuous stitches to complete a perfect anastomosis between the bladder and the prostate. I then placed a new catheter into the bladder, an 18 Cameroonian [place] tip catheter flushed the bladder and there was no leakage from the anastomosis I put 10 cc in the balloon and pulled it up pulled back gently. I then ensured that there was no bleeding from the dorsal vein complex no bleeding from the neurovascular bundles FloSeal was placed as necessary once hemostasis was ensured and adequate then I placed the bladder back in position in the pelvis the prostate was exchanged to the camera port I closed the air seal port with a 10 12 Stew Lo stitch. And the extracted the prostate through the umbilicus. The robot was undocked all the ports were removed under direct visualization then closed the extraction site with 0 Vicryl with a CT1 needle once the extraction site was closed. I then closed all the incision with subcuticular stitches with 4-0 Monocryl and then bandages were placed on the incisions catheter was flushed to make sure it was draining well there was no clots and it was crystal clear patient's anesthetic was reversed he was extubated and taken back to the PACU in stable condition all the needles and sponges and instruments were accounted for. Blood loss was minimal and the drain was a 18 Cameroonian Huang catheter. No other surgical drain was left. I was present during the entire case. Surgeon: Rich Jackson Type of Anesthesia: General Drains: huang Estimated Blood Loss (mL): 150 Admit VTE Documentation VTE Present on Admission: No VTE Mechan Device Prophylaxis: SCD's VTE Pharm Prophylaxis ordered?: No
[2023-02-04] MEDS: 0.9% Normal Saline (1000mL) 1,000 ML 125 ML IV ×2 (14:10→23:09)
[2023-02-04] MEDS: Pantoprazole Sodium 40 MG Tablet PO (14:17)
[2023-02-04] MEDS: Ketorolac 30 MG/ML Syringe 15 MG IV ×2 (14:17→20:02)
[2023-02-04] MEDS: 0.9% Saline Lock 10 ML Syringe IV (14:18)
[2023-02-04] MEDS: Ciprofloxacin 400 MG/200 ML BAG 200 MG IV (15:27)
[2023-02-04] MEDS: Docusate Sodium 100 MG Capsule 200 MG PO (20:02)
[2023-02-05 01:39] VITALS: BP 125/64; PULSE 64; RESP 16; TEMP 36.8; O2SAT 99
[2023-02-05] MEDS: Ketorolac 30 MG/ML Syringe 15 MG IV ×2 (02:55→08:15)
[2023-02-05] MEDS: Ciprofloxacin 400 MG/200 ML BAG 200 MG IV (03:01)
[2023-02-05 05:39] VITALS: BP 125/62; PULSE 60; RESP 16; TEMP 36.9; O2SAT 97
[2023-02-05] MEDS: HYDROcodone Bitartrate/Apap 5/325 Tablet PO (06:49)
--- NOTE | 2023-02-05 07:30 | PCM.PN.GU ---
Subjective Subjective Postop day #1 status post radical prostatectomy patient is doing really well. Minimal pain catheter is in place urine is draining well Objective Data Objective Data Vital Signs: Vital Signs Temp Pulse Resp BP Pulse Ox O2 Del Method O2 Flow Rate 98.5 F 60 16 125/62 H 97 Room Air 2 02/05/23 05:39 02/05/23 05:39 02/05/23 05:39 02/05/23 05:39 02/05/23 05:39 02/05/23 05:39 02/04/23 13:39 Oxygen Flow Rate (L/min) 2 Oxygen Delivery Method Room Air Weight: 93 kg Body Mass Index (BMI) 26.3 Intake & Output: Intake and Output for Last 24 Hours 02/03/23 02/04/23 02/05/23 23:59 23:59 23:59 Intake Total 2707.92 / 2707.92 200 / 200 Output Total 550 / 1450 1600 / 1600 Balance 2157.92 / 1257.92 -1400 / -1400 Lab / Micro Data 01/23/23 12:27 Physical Exam Const alert and oriented x3 General Appearance: cooperative HEENT normocephalic, head/scalp atraumatic, EAC's normal and TM's normal bilaterally Eyes PERRL and EOMs intact bilaterally Pupil: sluggish Neck no lymphadenopathy, supple and no JVD General: trachea midline Lymph Lymphatic: no lymphadenopathy noted, lymphedema and lymphadenopathy Resp normal respiratory effort, normal air movement and clear to auscultation bilaterally Cardio regular rate, regular rhythm and peripheral pulses 2+ throughout GI soft to palpation, non-tender and non-distended Extremity normal capillary refill and no clubbing, cyanosis or edema General Extremity: no tenderness to palpation of joints or extremities Skin no rashes or lesions noted General Skin Exam: turgor normal Lesions: no lesions Rashes: no rashes Neuro CN's II-XII intact bilaterally Speech: speech normal Motor Exam: strength 5/5 throughout; Negative for general weakness Psych thought process normal, cooperative and affect normal Appearance: appropriate Assessment & Plan Assessment/Plan (1) Prostate cancer: PLAN: Discharge home today after breakfast. He can go home with a catheter home the leg bag prescriptions are in place follow-up in my office 2 weeks to remove the catheter
[2023-02-05] MEDS: 0.9% Normal Saline (1000mL) 1,000 ML 125 ML IV (07:56)
[2023-02-05] MEDS: Docusate Sodium 100 MG Capsule 200 MG PO (08:17)
[2023-02-05] MEDS: Pantoprazole Sodium 40 MG Tablet PO (08:17)
[2023-02-05 08:20] VITALS: BP 103/60; PULSE 58; RESP 16; TEMP 37; O2SAT 98
== END 2023-02-05 13:25 | disposition home or self-care (01) ==
LOC: SDC 13:07 → MS3 13:07
PROVIDERS: Anesthesiology; Admitting Provider Urology; PCP Internal Medicine; Referring Provider Urology; Visit Provider Urology
PROC: 0VT04ZZ Resection of Prostate, Percutaneous Endoscopic Approach (ICD-10-PCS; CPT 55866; principal; 2023-02-04 07:40)
DX: C61 Malignant neoplasm of prostate (principal); K21.9 Gastro-esophageal reflux disease without esophagitis; Z79.899 Other long term (current) drug therapy
CPT/HCPCS: 55866; 00865; 36415; 85027; 86850; 86900; 86901; 88307; 88309; 93005; 96361; 96365; 96366; 96375; 96376; 99221; J7030; J7120; A4216; G0378; J0744; J2405

== ENCOUNTER → 2023-03-30 | Outpatient (CLI) | payer BC, SELFPAY ==
[2023-03-30 10:27] LABS: PSA,Total- Diagnostic < 0.01 ng/mL (0.0-4.0)
== END | disposition home or self-care (01) ==
LOC: LAB 09:30
PROVIDERS: PCP Internal Medicine; Referring Provider Nurse Practitioner; Visit Provider Nurse Practitioner
DX: C61 Malignant neoplasm of prostate (principal)
CPT/HCPCS: 36415; 84153

== ENCOUNTER → 2023-06-29 | Outpatient (CLI) | payer BC, SELFPAY ==
--- OUTSIDE RECORDS SUMMARY | 2023-06-29 10:23 | XMS RPT_ITS | CCD ---
Author Name Unknown Address [address] [place] [address] Organization [facility] Results Test Name Value Interpretation Reference Range Facil ity Progress note 05-21-2021 Note Date & Type Note Facility 05-21-2021 Note HNO ID: [id number] Author: Johanna Bhardwaj APRN.[facility] Service: ? Author Type: Nurse Practitioner Type: Progress Notes Filed: 05/21/2021 10:52 AM Note Text: CC: Patient presents with: Cough: cold symptoms x 2 days HPI: Dio Joya is a 55 year old male who presents to the office with complaint of respiratory symptoms, head congestion and sinus symptoms for a few days. Symptoms are worsening Associated symptoms includes cough. Denies nausea, vomiting and diarrhea. Treatments tried include nothing so far. with no relief of symptoms. Sick contacts: unknown. History of asthma, frequent episodes of bronchitis, chronic bronchitis, bronchiectasis or COPD: No Smoker: No Seasonal/environmental allergies: No The ROS is otherwise negative. The patient's pmh, medications, allergies, and past visits are reviewed. PHYSICAL EXAM: BP 122/84 Pulse 67 Temp 36.6 ?C (97.8 ?F) (Tympanic) Wt 100.7 kg (222 lb) SpO2 97% General appearance: alert, cooperative, pleasant, in no acute distress Head: Normocephalic Eyes: EOM's intact, conjunctiva pink and moist, no icterus, sclera white, non-injected Heart: Negative. RRR without obvious murmur, gallop, or rubs. No ectopy. Lungs: clear to auscultation, without rales or wheeze, good air exchange PAST MEDICAL HISTORY Diagnosis Date - SPONTANEOUS TENSION PNEUMOTHORAX PAST SURGICAL HISTORY Procedure Laterality Date - REMOVAL OF TONSILS,<12 Y/O ALLERGIES Tree Nuts [Other] MEDICATIONS omeprazole (PRILOSEC) 20 mg capsule Take 40 mg by mouth once daily. pseudoeph/DM/guaifen/acetamin (TYLENOL COLD MULTI-SYMPTOM ORAL) Take by mouth as needed. Doxycycline Monohydrate 100 mg ORAL Tab Take one(1) tablet daily. FAMILY HISTORY Problem Relation Age of Onset - None Mother - Heart Father - Ischemic Heart Disease Father - Lipids Father - Diabetes Father Social History Tobacco Use - Smoking status: Never Smoker - Smokeless tobacco: Not on file Substance Use Topics - Alcohol use: No - Drug use: No ASSESSMENT/PLAN: 1. Suspected COVID-19 virus infection - ICD9: V01.79, ICD10: Z20.822 - COVID WITH FLUA+B, ROUTINE Sent home to quarantine. Potential red flag symptoms discussed with the patient. Reviewed appropriate action plan to take if red flag symptoms occur. Patient agreeable to treatment plan. Johanna Bhardwaj APRN.[facility] Summary Purpose Family History No Family History Records Found Advance Directives No Advanced Directives Records Found Additional Source Comments (unrecognized sect ion and content) No Status Records Found INFORMATION SOURCE (unrecogn ized section and content) FOR RECORDS PERTAINING TO PATIENTS WHO ARE OR HAVE BEEN ENROLLED IN A CHEMICAL DEPENDENCY/SUBSTANCEABUSE PROGRAM, SOME INFORMATION MAY BE OMITTED. This clinical summary was aggregated from multiple sources. Caution should be exercised in using it in the provision of clinical care. This summary normalizes information from multiple sources, and as a consequence, information in this document may materially change the coding, format and clinical context of patient data. In addition, data may be omitted in some cases. CLINICAL DECISIONS SHOULD BE BASED ON THE PRIMARY CLINICAL RECORDS. [employer] ? IO. provides no warranty or guarantee of the accuracy or completeness of information in this document.
[2023-06-29 11:24] LABS: PSA,Total- Diagnostic < 0.01 ng/mL (0.0-4.0)
== END | disposition home or self-care (01) ==
LOC: LAB 09:59
PROVIDERS: PCP Internal Medicine; Referring Provider Nurse Practitioner; Visit Provider Nurse Practitioner
DX: C61 Malignant neoplasm of prostate (principal)
CPT/HCPCS: 36415; 84153

== ENCOUNTER → 2023-11-06 | Outpatient (CLI) | payer BC, SELFPAY ==
--- NOTE | 2023-11-06 07:59 | CT_ITS ---
STUDY: CT CHEST WITHOUT CONTRAST REASON FOR EXAM: Male, 58 years old. FU Lung Nodule RADIATION DOSAGE (If Supplied By Facility): CTDIvol = ( 17.13 ) mGy, DLP = ( 663.67 ) mGycm TECHNIQUE: Transaxial imaging was performed without the administration of intravenous contrast material. Multiplanar coronal and sagittal images were reformatted. Individualized dose optimization techniques were used for this CT. COMPARISON: Comparison is made with prior study dated December 05, 2022. FINDINGS: CHEST Small benign-appearing bilateral axillary lymph nodes. Stable scarring at both lung apices. Stable 5 mm noncalcified nodule in the peripheral lateral aspect of the right lower lobe as seen on axial image #85. Stable 3 mm noncalcified nodule in the posterior lateral aspect of the lingular segment of the left upper lobe. There is no demonstrated pleural abnormality. There are calcifications of the coronary arteries. There are small lymph nodes within the mediastinum, which are normal in size and morphology most compatible with reactive lymph hyperplasia. Normal hilar regions. Normal unenhanced pulmonary arteries. Normal aorta arch and descending thoracic aorta. There are degenerative changes of the thoracic spine. Small hiatal hernia. CT/Chest without Contrast IMPRESSION: Stable examination. Twelve-month follow-up recommended. Electronically Signed: Zackary Odonnell MD at 10:32 EDT ,
== END | disposition home or self-care (01) ==
PROVIDERS: PCP Internal Medicine; Referring Provider Internal Medicine; Visit Provider Internal Medicine
DX: R91.1 Solitary pulmonary nodule (principal)
CPT/HCPCS: 71250

== ENCOUNTER 2023-11-16 11:22 | Emergency (ER) | payer BC, SELFPAY ==
[2023-11-16 11:22] VITALS: BP 147/77; PULSE 66; RESP 14; TEMP 36.2; O2SAT 98
--- NOTE | 2023-11-16 11:37 | RAD_ITS ---
STUDY: X-RAY - LEFT FOOT CLINICAL: Male, 58 years old. Lateral ankle pain following a twisting injury. TECHNIQUE: 3 view(s) of the foot. COMPARISON: None. FINDINGS: Nondisplaced transverse fracture at the base of the fifth metatarsal. Normal visualized subtalar, talonavicular, calcaneocuboid, tarsal and tarsometatarsal articulations. Normal metatarsi. Normal metatarsophalangeal joint of the great toe. Normal tibial and fibular sesamoid bones. Normal interphalangeal joint of the great toe. Normal phalanges of the great toe. Normal second through fifth metatarsophalangeal joints. Normal interphalangeal joints and phalanges of the lesser toes. Soft tissue swelling. RAD/Foot min 3 Views IMPRESSION: Nondisplaced transverse fracture at the base of the fifth metatarsal with overlying soft tissue swelling. Electronically Signed: Zackary Odonnell MD at 12:27 EDT ,
--- NOTE | 2023-11-16 11:38 | ED.VIS.LOWEX ---
HPI History of Present Illness Chief Complaint: Lower Extremity Injury Informant: patient Narrative Narrative: Patient states he was hiking last night and stepped on a rock accidentally inverting his left foot/ankle, with acute pain he has been able to bear weight but painful to push off with his foot/toe/plantar flexing. No other injury or fall. [facility] Medical History Restless legs Non-smoker Sleep apnea History of edema History of irregular heartbeat Lung nodule Prostate cancer Lung nodule seen on imaging study Abnormal abdominal CT scan Elevated PSA Colon cancer screening Preventative health care Elevated blood pressure reading without diagnosis of hypertension Anxiety and depression Over weight Skin mole Wears glasses GERD (gastroesophageal reflux disease) Esophageal abnormality Home Medications ?Medication ?Instructions ?Recorded ?Last Taken ?Type esomeprazole magnesium 20 mg 40 mg PO DAILY GERD 07/09/21 Unknown History tablet,delayed release cholecalciferol (vitamin D3) 125 125 mcg PO DAILY SUPPLEMENT 01/23/23 Unknown History mcg (5,000 unit) tablet (Vitamin D3) ciprofloxacin HCl 500 mg tablet 500 mg PO BID #20 tabs 02/04/23 Unknown Rx (Cipro) docusate sodium 100 mg capsule 100 mg PO BID #20 caps 02/04/23 Unknown Rx (Colace) oxycodone 5 mg tablet 5 mg PO Q6H PRN pain 7 days #14 02/04/23 Unknown Rx tabs Allergy/AdvReac Type Severity Reaction Status Date / Time lactose AdvReac PT UNSURE Verified 11/16/23 11:23 OF REACTION Family History Father Cancer pancreatic Heart disease Diabetes Mother Myocardial infarction, Onset Age: 83 Hypertension Hyperlipemia Surgical History (Updated 01/23/23 @ 09:03 by Isamar Borrero) History of hernia surgery History of esophagogastroduodenoscopy (EGD) History of colonoscopy History of tonsillectomy Social History Smoking Status: Never smoker alcohol intake: never substance use type: does not use what type of physical activity do you participate in: none ROS ROS ED Constitutional Constitutional ED: Denies chills or fever(s) Musculoskeletal Musculoskeletal: Reports extremity pain; Denies neck pain Integumentary Denies Abrasions, rash or wounds Neurologic Neurologic: Denies paresthesias or weakness EXAM Physical Exam Const Vital Signs: 11/16/23 11:22 Temperature 97.1 F L Temperature Source Temporal Pulse Rate 66 Respiratory Rate 14 Blood Pressure 147/77 H Blood Pressure Mean 100 Pulse Ox 98 Oxygen Delivery Method Room Air Positive well nourished and well developed General Appearance ED: well developed and NAD Neck full ROM and supple Back/Spine normal ROM and normal to inspection Extremity Extremity Narrative: No tenderness or swelling about the left ankle malleoli. There is swelling with ecchymosis at the lateral aspect of the midfoot, with the majority of the tenderness being the base of the fifth metatarsal. The rest of the midfoot is nontender. The calcaneus is nontender. Proximal fibula is nontender. He has no significant discomfort with ranging the ankle or with placing lateral force on the ankle. Neuro oriented x3, no focal motor deficits and no sensory deficits noted Sensorium / Orientation: alert Psych mental status grossly normal and thought process normal Skin no wounds Rashes: no rashes MDM MDM MDM Narrative Medical decision making narrative: Three-view x-ray series of the left ankle are negative, interpretation, three-view x-ray series of the left foot on my interpretation show what appears to be an avulsion fracture of the base of the fifth metatarsal. I think it is less likely to be a Estrada fracture. Discussed with Dr. Manzo who looked at the films and agrees with me. Recommends En wrap, postop shoe, crutches and close outpatient follow-up. [id number] medications are okay with the patient. Given appropriate discharge instructions to follow-up. Radiography Diagnostic Testing: Clinical Impression(s) from Imaging Studies Foot X-Ray 11/16/23 11:37 IMPRESSION: Nondisplaced transverse fracture at the base of the fifth metatarsal with overlying soft tissue swelling. Electronically Signed: Zackary Odonnell MD at 12:27 EDT , Ankle X-Ray 11/16/23 11:40 IMPRESSION: Nondisplaced transverse fracture of the base of the fifth metatarsal with overlying soft tissue swelling. Electronically Signed: Zackary Odonnell MD at 12:30 EDT , Management Discussion w/another healthcare provider: [employer] (podiatry abebe) Discharge Plan Triage Chief Complaint: Lower Extremity Injury ED Provider: Leobardo Yousif Dx/Rx/DC Orders Clinical Impression: Closed fracture of base of fifth metatarsal bone of left foot Instructions: ED Fracture, Foot Prescriptions: No Action esomeprazole magnesium 20 mg tablet,delayed release (DR/EC) 40 mg PO DAILY cholecalciferol (vitamin D3) [Vitamin D3] 125 mcg (5,000 unit) tablet 125 mcg PO DAILY ciprofloxacin HCl [Cipro] 500 mg tablet 500 mg PO BID Qty: 20 0RF docusate sodium [Colace] 100 mg capsule 100 mg PO BID Qty: 20 0RF oxycodone 5 mg tablet 5 mg PO Q6H PRN (Reason: pain) 7 Days Qty: 14 0RF Stand Alone Forms: ED Work / School Excuse Primary Care Provider: Shante Zapata Referrals: Shante Zapata MD [Primary Care Provider] - Stephan Perez DPM [Med Staff - Active Staff] - As soon as possible Activity Restrictions/Additional Instructions: Avulsion fracture nondisplaced base of left fifth metatarsal. Use shoe and crutches as needed, weightbearing as tolerated until you follow-up with podiatry as above Print Language: Namibian
--- NOTE | 2023-11-16 11:40 | RAD_ITS ---
STUDY: X-RAY - LEFT ANKLE REASON FOR EXAM: Male, 58 years old. Injury TECHNIQUE: 3 view(s) of the ankle. COMPARISON: None. FINDINGS: Normal visualized distal tibia and fibula. Normal medial and lateral malleoli. Normal tibiotalar articulation and ankle mortise. Normal visualized talus and calcaneus. The visualized subtalar, talonavicular, calcaneocuboid and tarsal articulations are normal. Nondisplaced transverse fracture at the base of the fifth metatarsal with overlying soft tissue swelling. Lateral soft tissue swelling. RAD/Ankle min 3 Views IMPRESSION: Nondisplaced transverse fracture of the base of the fifth metatarsal with overlying soft tissue swelling. Electronically Signed: Zackary Odonnell MD at 12:30 EDT ,
[2023-11-16 11:55] VITALS: BMI 28.2
== END 2023-11-16 13:17 | disposition home or self-care (01) ==
PROVIDERS: Emergency Provider Emergency Medicine; PCP Internal Medicine; Visit Provider Emergency Medicine
DX: S92.355A Nondisplaced fracture of fifth metatarsal bone, left foot, initial encounter for closed fracture (principal); X50.1XXA Overexertion from prolonged static or awkward postures, initial encounter; Y93.01 Activity, walking, marching and hiking
CPT/HCPCS: 73610; 73630; 99284

== ENCOUNTER → 2023-12-02 | Outpatient (CLI) | payer BC, SELFPAY ==
[2023-12-02 15:14] LABS: Absolute Lymphocyte Count 1.03 X10^3/uL (0.83-4.51); Absolute Neutrophil Count 3.8 X10^3/uL (2.0-7.7); Basophil# 0.05 X10^3/uL; Basophil% 0.9 % (0-1); Eosinophil# 0.32 X10^3/uL; Eosinophils% 5.5 % (0-5); Hematocrit 45.9 % (40-54); Hemoglobin 15.4 g/dL (13.0-16.5); Lymphocyte # 1.03 X10^3/ul (0.83-4.51); Lymphocyte % 17.7 % (19-41); Mean Corp Hgb Conc 33.6 g/dL (32-36); Mean Corpuscular Hgb 29.7 pg (27.0-32.0); Mean Corpuscular Volume 88.4 fL (80-94); Mean Platelet Vol. 9.8 fl (6.2-12.0); Monocyte# 0.56 X10^3/uL; Monocyte% 9.6 % (0-10); NRBC Flagged by Analyzer 0 % (0-5); Neutrophil # 3.84 X10^3/uL (2.7-7.7); Neutrophil % 65.8 % (47-70); Platelet Count 233 K/mm3 (150-450); RBC Distribution Width CV 12.3 % (11.6-14.6); RBC Distribution Width SD 39.9 fl (35.1-43.9); Red Blood Count 5.19 M/mm3 (4.6-6.2); White Blood Count 5.8 K/mm3 (4.4-11.0)
[2023-12-02 15:26] LABS: AST(SGOT) 14 U/L (15-37); Alanine Aminotransfer ALT/SGPT 23 U/L (16-61); Albumin, Serum 3.7 g/dL (3.2-5.0); Alkaline Phosphatase 86 U/L (45-117); Anion Gap 6 (5-15); BUN 24 mg/dL (7-18); BUN/Creat Ratio 23.1 RATIO (10-20); Calcium,Total 9.2 mg/dL (8.5-10.1); Chloride 105 mmol/L (98-107); Cholesterol 199 mg/dL (200); Creatinine, Serum 1.04 mg/dL (0.70-1.30); EST Glomerular Filtration Rate 77 mL/min (>60); Est Glom Filt Rate - Afr Amer 94 mL/min (>60); Globulin 3.7 g/dL (2.2-4.2); Glucose 97 mg/dL (74-106); High Density Lipoprotein 38 mg/dL; Potassium 4.4 mmol/L (3.5-5.1); Protein, Total 7.4 g/dL (6.4-8.2); Sodium Level 139 mmol/L (136-145); Triglycerides 215 mg/dL; Very Low Density Lipoprotein 43 mg/dL (5-40)
== END | disposition home or self-care (01) ==
LOC: BIMLAB 11:45
PROVIDERS: PCP Internal Medicine; Referring Provider Internal Medicine; Visit Provider Internal Medicine
DX: Z00.00 Encounter for general adult medical examination without abnormal findings (principal)
CPT/HCPCS: 36415; 80053; 80061; 85025

== ENCOUNTER 2024-01-04 06:28 | Day surgery (SDC) | payer BC, SELFPAY ==
--- NOTE | 2024-01-04 06:40 | PCM.PRE.AN2 ---
ASA Classification* ASA Classification ASA Classification: 2 Assessment & Plan Anesthesia* Anesthesia Assessment Anesthesia Assessment: Discussed sedation and/or anesthesia options, risks, benefits, and alternatives with patient/parents/legal guardian/POA. Questions invited. The patient/parents/legal guardian/POA seems to understand and agrees to proceed with anesthesia plan. Reviewed the physical assessment, medical history, allergy history and patient home medications list prior to surgery/procedure/anesthetic and documented any changes. Performed airway and anesthesia risk assessments. Anesthesia Type Anesthesia Type: MAC Anesthesia Focused Assessment* Airway Assessment Mouth opens: >3 cm Mallampati Score: II Focused Labs Anesthesia Preop lab: CBC WBC 5.8 K/mm3 (4.4-11.0) 12/02/23 11:45 RBC 5.19 M/mm3 (4.6-6.2) 12/02/23 11:45 Hgb 15.4 g/dL (13.0-16.5) 12/02/23 11:45 Hct 45.9 % (40-54) 12/02/23 11:45 Plt Count 233 K/mm3 (150-450) 12/02/23 11:45 CHEMISTRY Potassium 4.4 mmol/L (3.5-5.1) 12/02/23 11:45 Sodium 139 mmol/L (136-145) 12/02/23 11:45 BUN 24 mg/dL (7-18) H 12/02/23 11:45 Creatinine 1.04 mg/dL (0.70-1.30) 12/02/23 11:45 Glucose 97 mg/dL (74-106) 12/02/23 11:45 COAG Pre-Assessment Diagnosis/Proposed Procedure Planned Operative Procedure(s): CSCOPE OA Anesthesia History 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 When Was Last Pacemaker Check QUESTION #4 FULL TEXT: You/Your Family Experience fever (hyperthermia) with Anesthesia Last Oral Intake Last Oral intake: Last Oral Intake NPO since Meds taken in AM with sips of water? Meds patient instructed to take am of surgery PONV PONV - financial reporting analyst: PONV - financial reporting analyst Female No 12/31/23 14:02 HX of Motion Sickness No 12/31/23 14:02 HX of N/V After Surgery No 12/31/23 14:02 Non-Smoker Yes 12/31/23 14:02 Duration of Surgery greater No 12/31/23 14:02 than 60 minutes Number of Risk Factors 1 12/31/23 14:02 PONV Score Low Risk 12/31/23 14:02 Height & Weight Height & Weight: Anesthesia: Height & Weight Height 6 ft 2 in 12/07/23 11:33 Respiratory Assessment Respiratory Assessment - financial reporting analyst: Respiratory Tract Infection Hx - financial reporting analyst Hx Respiratory Tract Infection No 12/31/23 14:02 STOP Sleep Apnea STOP Sleep Apnea - financial reporting analyst: STOP Sleep Apnea - financial reporting analyst Hx Hypertension No 12/31/23 14:02 Hx Sleep Apnea Yes 12/31/23 14:02 CPAP Yes: NONCOMPLIANT 12/31/23 14:02 BIPAP No 12/31/23 14:02 Do you snore loudly (louder than talking or can be heard Do you often feel tired/ fatigued/ sleepy during daytime? Has anyone observed you stop breathing during sleep? STOP Results Positive 12/31/23 14:02 QUESTION #5 FULL TEXT : Do you snore loudly (louder than talking or can be heard through closed doors)? 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 Specify any problems Hx of Preganancy in last 3 N/A 12/31/23 14:02 Months Nurse Filling Out Transfusion DSCHRIBER 12/31/23 14:02 & Questions: Date: 12/31/23 12/31/23 14:02 Time: 14:04 12/31/23 14:02 Patient unable to answer at this time (ie. confused, unrespo /Reproduction History /Reproductive History - financial reporting analyst: /Reproductive Hx- financial reporting analyst Hx Now No 12/31/23 14:02 Gestational Age (in weeks): EDC: Hx Hx Para Hx Section SAB No 12/31/23 14:02 Active Medications Active Medications: Current Medications Generic Name Dose Route Start Last Admin Trade Name Freq PRN Reason Stop Dose Admin Lactated Ringer's 1,000 mls @ 15 mls/hr 01/04/24 06:45 IV .Q48H ASHLY PFSH Medical History (Updated 12/31/23 @ 14:08 by Jessica Herbert) Depression History of hiatal hernia CPAP (continuous positive airway pressure) dependence Impacted cerumen of left ear Restless legs Non-smoker History of edema History of irregular heartbeat Lung nodule Prostate cancer Lung nodule seen on imaging study Abnormal abdominal CT scan Elevated PSA Colon cancer screening Preventative health care Elevated blood pressure reading without diagnosis of hypertension Anxiety and depression Over weight Skin mole Wears glasses GERD (gastroesophageal reflux disease) Esophageal abnormality Home Medications ?Medication ?Instructions ?Recorded ?Last Taken ?Type esomeprazole magnesium 20 mg 40 mg PO DAILY GERD 07/09/21 Unknown History tablet,delayed release cholecalciferol (vitamin D3) 125 125 mcg PO DAILY SUPPLEMENT 01/23/23 Unknown History mcg (5,000 unit) tablet (Vitamin D3) ibuprofen 200 mg tablet 200 mg PO Q6H PRN pain 12/07/23 Unknown History Allergy/AdvReac Type Severity Reaction Status Date / Time lactose AdvReac PT UNSURE Verified 12/31/23 14:02 OF REACTION Family History Father Cancer pancreatic Heart disease Diabetes Mother Myocardial infarction, Onset Age: 83 Hypertension Hyperlipemia Surgical History (Updated 12/31/23 @ 14:08 by Jessica Herbert) Hx of radical prostatectomy History of hernia surgery History of esophagogastroduodenoscopy (EGD) History of colonoscopy History of tonsillectomy Social History (Updated 12/07/23 @ 11:25 by Deidre Campos) current occupational status: employed Smoking Status: Never smoker alcohol intake: never substance use type: does not use what type of physical activity do you participate in: none Review of Systems (Anesthesia) ROS Narrative System reviewed and no additional complaints, except as documented.
[2024-01-04 06:48] VITALS: BP 126/77; PULSE 64; RESP 18; TEMP 36.6; O2SAT 99; BMI 28.0
[2024-01-04] MEDS: Lactated Ringers 1,000 ML 15 ML IV (06:52)
--- NOTE | 2024-01-04 07:26 | PCM.HP.STD ---
[facility] - General General Date of Admission: 01/04/24 Date of Service: 01/04/24 Chief Complaint: Screening colonoscopy HPI Narrative EUSEBIO JOYA, is a 58 M who presents today for screening colonoscopy. He has a past medical history of prostate cancer, gastroesophageal reflux disease arrives here today for screening colonoscopy. He is not have any abdominal pain, cramping, chest pain or shortness of breath. He had a colonoscopy approximately 10 years ago in [place] and that was normal. [facility] Medical History (Updated 12/31/23 @ 14:08 by Jessica Herbert) Depression History of hiatal hernia CPAP (continuous positive airway pressure) dependence Impacted cerumen of left ear Restless legs Non-smoker History of edema History of irregular heartbeat Lung nodule Prostate cancer Lung nodule seen on imaging study Abnormal abdominal CT scan Elevated PSA Colon cancer screening Preventative health care Elevated blood pressure reading without diagnosis of hypertension Anxiety and depression Over weight Skin mole Wears glasses GERD (gastroesophageal reflux disease) Esophageal abnormality Home Medications ?Medication ?Instructions ?Recorded ?Last Taken ?Type esomeprazole magnesium 20 mg 40 mg PO DAILY GERD 07/09/21 01/04/24 History tablet,delayed release cholecalciferol (vitamin D3) 125 125 mcg PO DAILY SUPPLEMENT 01/23/23 Unknown History mcg (5,000 unit) tablet (Vitamin D3) ibuprofen 200 mg tablet 200 mg PO Q6H PRN pain 12/07/23 Unknown History Allergy/AdvReac Type Severity Reaction Status Date / Time lactose AdvReac PT UNSURE Verified 01/04/24 06:47 OF REACTION Family History Father Cancer pancreatic Heart disease Diabetes Mother Myocardial infarction, Onset Age: 83 Hypertension Hyperlipemia Surgical History (Updated 12/31/23 @ 14:08 by Jessica Herbert) Hx of radical prostatectomy History of hernia surgery History of esophagogastroduodenoscopy (EGD) History of colonoscopy History of tonsillectomy Social History (Updated 12/07/23 @ 11:25 by Deidre Campos) current occupational status: employed Smoking Status: Never smoker alcohol intake: never substance use type: does not use what type of physical activity do you participate in: none ROS Review of Systems ROS Unobtainable: other Constitutional Constitutional: Denies fatigue, fever(s), poor appetite, weight gain or weight loss ENT HEENT: Denies mouth lesions Cardiovascular Cardiovascular: Denies abdominal bloating, abdominal edema or abdominal pain Respiratory/Chest Respiratory/Chest: Denies change in mental status, change in phlegm color, chest congestion or chest tightness Gastrointestinal Gastrointestinal: Denies belching, bloating, change in bowel habits, change in stool character, chewing difficulty, coffee ground emesis, constipation, cramping, diarrhea, dyspepsia, dysphagia, early satiety, excessive flatus, fecal incontinence, heartburn, hematemesis, hematochezia, hemorrhoids, loose stools, melena, nausea, odynophagia, rectal bleeding, tenesmus, vomiting or weight changes Genitourinary Genitourinary: Denies abdominal discomfort, burning urination or itching Musculoskeletal Musculoskeletal: Reports as per HPI; Denies muscle weakness or myalgias Integumentary Integumentary: Denies jaundice Neurologic Neurologic: Denies lack of coordination or weakness Psychiatric Psychiatric: Denies confusion, depression, memory loss, mood swings, paranoia or suicidal ideation Endocrine Endocrinology: Denies systems reviewed and no addt'l complaints, except as documented Hematologic/Lymphatic Hematologic/Lymphatic: Denies anemia, easy bleeding, easy bruising or lymphadenopathy Allergic/Immunologic Allergic/Immunologic: Denies systems reviewed and no addt'l complaints, except as documented Vital Signs Vital Signs Vital Signs: 01/04/24 06:48 01/04/24 06:48 Temperature 97.8 F Temperature Source Temporal Pulse Rate 64 Respiratory Rate 18 Respiratory Pattern Normal Blood Pressure 126/77 H Blood Pressure Mean 93 Blood Pressure Source Monitor Blood Pressure Position Semi-Fowlers Blood Pressure Location Right Arm Pulse Ox 99 Oxygen Delivery Method Room Air Weight Weight: 218 lb 4.122 oz Body Mass Index (BMI) 28.0 Physical Exam Const alert and oriented x3 General Appearance: cooperative HEENT normocephalic, head/scalp atraumatic, EAC's normal and TM's normal bilaterally Eyes PERRL and EOMs intact bilaterally Pupil: sluggish Neck no lymphadenopathy, supple and no JVD General: trachea midline Lymph Lymphatic: no lymphadenopathy noted, lymphedema and lymphadenopathy Resp normal respiratory effort, normal air movement and clear to auscultation bilaterally Cardio regular rate, regular rhythm and peripheral pulses 2+ throughout GI soft to palpation, non-tender and non-distended Extremity normal capillary refill and no clubbing, cyanosis or edema General Extremity: no tenderness to palpation of joints or extremities Skin no rashes or lesions noted General Skin Exam: turgor normal Lesions: no lesions Rashes: no rashes Neuro CN's II-XII intact bilaterally Speech: speech normal Motor Exam: strength 5/5 throughout; Negative for general weakness Psych thought process normal, cooperative and affect normal Appearance: appropriate Assessment & Plan Assessment/Plan (1) Encounter for screening for malignant neoplasm of colon: PLAN: He was explained alternatives, risk, benefits including not withstanding bleeding, infection, sepsis, perforation, need for emergent urgent . He will have an ASA of 3.
[2024-01-04 07:50] VITALS: BP 102/59; BP 126/77; PULSE 66; RESP 16; TEMP 36.1; O2SAT 96
--- NOTE | 2024-01-04 07:51 | OP.COLON_ITS ---
Patient Name: Dio Loving Procedure Date: 01/04/2024 7:29 AM Date of : 1965 Age: 58 Procedure: Colonoscopy Indications: Screening for colorectal malignant neoplasm Providers: Cruz Khan DO Medicines: Monitored Anesthesia Care Patient Profile: This is a 58 year old male. Refer to note in patient chart for documentation of history and physical. Last Colonoscopy: more than 10 years ago. Complications: No immediate complications. Procedure: Pre-Anesthesia Assessment: - Prior to the procedure, a History and Physical was performed, and patient medications and allergies were reviewed. The patient is competent. The risks and benefits of the procedure and the sedation options and risks were discussed with the patient. All questions were answered and informed consent was obtained. Patient identification and proposed procedure were verified by the physician in the pre-procedure area. Mental Status Examination: alert and oriented. Airway Examination: normal oropharyngeal airway and neck mobility. Respiratory Examination: clear to auscultation. CV Examination: normal. Prophylactic Antibiotics: The patient does not require prophylactic antibiotics. Prior Anticoagulants: The patient has taken no anticoagulant or antiplatelet agents except for NSAID medication. ASA Grade Assessment: II - A patient with mild systemic disease. After reviewing the risks and benefits, the patient was deemed in satisfactory condition to undergo the procedure. The anesthesia plan was to use monitored anesthesia care (MAC). Immediately prior to administration of medications, the patient was re-assessed for adequacy to receive sedatives. The heart rate, respiratory rate, oxygen saturations, blood pressure, adequacy of pulmonary ventilation, and response to care were monitored throughout the procedure. The physical status of the patient was re-assessed after the procedure. After I obtained informed consent, the scope was passed under direct vision. Throughout the procedure, the patient's blood pressure, pulse, and oxygen saturations were monitored continuously. The Colonoscope was introduced through the anus and advanced to the terminal ileum. The colonoscopy was performed without difficulty. The patient tolerated the procedure well. The quality of the bowel preparation was adequate. Scope In: 7:36:55 AM Scope Withdrawal Time 0 hours 6 minutes 20 seconds Scope Out: 7:46:52 AM Total Procedure Duration Time 0 hours 9 minutes 57 seconds Findings: The perianal and digital rectal examinations were normal. A few small-mouthed diverticula were found in the recto-sigmoid colon and sigmoid colon. The exam was otherwise without abnormality on direct and retroflexion views. Impression: - Diverticulosis in the recto-sigmoid colon and in the sigmoid colon. - The examination was otherwise normal on direct and retroflexion views. - No specimens collected. Recommendation: - Discharge patient to home. - Resume previous diet. - Continue present medications. - Repeat colonoscopy in 10 years for screening purposes. Procedure Code(s): --- Professional --- G0121, Colorectal cancer screening; colonoscopy on individual not meeting criteria for high risk CPT copyright 2021 [employer]. All rights reserved. The codes documented in this report are preliminary and upon calender worker helper review may be revised to meet current compliance requirements. Cruz Khan DO 01/04/2024 7:50:30 AM This report has been signed electronically. Number of Addenda: 0 Note Initiated On: 01/04/2024 7:29 AM
--- NOTE | 2024-01-04 07:51 | OP.CCLET_ITS ---
01/04/2024 Shante Zapata MD [address] [place] [address] [place] [address] Re : Colonoscopy procedure for Dio Loving Dear Dr. Zapata This procedure was performed on Thursday, January 04, 2024. My impressions and recommendations are as follows: Impressions : - Diverticulosis in the recto-sigmoid colon and in the sigmoid colon. - The examination was otherwise normal on direct and retroflexion views. - No specimens collected. Recommendations : - Discharge patient to home. - Resume previous diet. - Continue present medications. - Repeat colonoscopy in 10 years for screening purposes. My findings are described in the full procedure note, which is enclosed. If I can be of further assistance, please feel free to contact me at . Sincerely, Cruz Khan, 01/04/2024 7:50:30 AM This report has been signed electronically.
--- NOTE | 2024-01-04 07:54 | PCM.POST.ANE ---
Anesthesia: Postop Eval I Current Vital Signs Temperature: 97 F Pulse Rate: 67 Blood Pressure: 102/59 Respiratory Rate: 16 Pulse Ox: 97 Oxygen Delivery Method: Room Air Assessment Airway patent: Yes Spontaneous unlabored respirations: Yes Mental status: Asleep nausea: No Vomiting: No Anesthesia Complication: No Fluid Hydration Crystalloid volume administer (ml): 600 Total IV fluid infused: 600 Progress Note Anesthesia document: Postop Eval 1 completed: Yes
[2024-01-04 07:55] VITALS: BP 102/59; BP 104/61; BP 126/77; PULSE 63; PULSE 67; RESP 16; TEMP 36.1; O2SAT 95; O2SAT 97
[2024-01-04 08:00] VITALS: BP 126/77; BP 92/67; PULSE 65; RESP 16; O2SAT 96
[2024-01-04 08:14] VITALS: BP 116/79; BP 126/77; PULSE 63; RESP 16; TEMP 36.1; O2SAT 96
[2024-01-04 08:29] VITALS: BP 126/77
--- NOTE | 2024-01-04 11:43 | PCM.POSTANE2 ---
Anesthesia Postop Eval I Sum Postop Eval Completion status Anesthesia document: Postop Eval 1 completed: Yes Anesthesia Postop Eval I Summary Anesthesia Postop Eval I Summary: Anesthesia Postop Eval I: Assessment Summary Airway patent Yes 01/04/24 07:55 [email or web address] Spontaneous unlabored Yes 01/04/24 07:55 [email or web address] respirations Mental status Asleep 01/04/24 07:55 [email or web address] nausea No 01/04/24 07:55 [email or web address] Vomiting No 01/04/24 07:55 [email or web address] Anesthesia Postop Eval I: Fluid Summary Crystalloid volume administer 600 01/04/24 07:55 [email or web address] (ml) Colloids volume administered ( ml) Blood Product volume administered (ml) Total IV fluid infused 600 01/04/24 07:55 [email or web address] Anesthesia Postop Eval I: Summary Notes Anesthesia Complication No 01/04/24 07:55 [email or web address] Anesthesia Complication Comment: Post-operative progress note Anesthesia: Postop Eval II Evaluation Mental status: Awake and Calm Pain Level: 0 nausea: No Vomiting: No Complications Anesthesia Complication: No
== END 2024-01-04 08:35 | disposition home or self-care (01) ==
LOC: EN 06:29 → AC 06:29
PROVIDERS: PCP Internal Medicine; Referring Provider Internal Medicine; Visit Provider Internal Medicine Gastroenterology
PROC: 0DJD8ZZ Inspection of Lower Intestinal Tract, Via Natural or Artificial Opening Endoscopic (ICD-10-PCS; CPT 45378; principal; 2024-01-04 07:25)
DX: Z12.11 Encounter for screening for malignant neoplasm of colon (principal); K57.30 Diverticulosis of large intestine without perforation or abscess without bleeding; K21.9 Gastro-esophageal reflux disease without esophagitis; Z85.46 Personal history of malignant neoplasm of prostate
CPT/HCPCS: G0121; J7120; J2405

== ENCOUNTER → 2024-08-24 | Outpatient (CLI) | payer BC, SELFPAY ==
[2024-08-24 11:07] LABS: Absolute Lymphocyte Count 1.12 X10^3/uL (0.83-4.51); Absolute Neutrophil Count 2.9 X10^3/uL (2.0-7.7); Basophil# 0.09 X10^3/uL; Basophil% 1.6 % (0-1); Eosinophil# 0.78 X10^3/uL; Eosinophils% 14.2 % (0-5); Hematocrit 43.2 % (40-54); Hemoglobin 15.1 g/dL (13.0-16.5); Lymphocyte # 1.12 X10^3/ul (0.83-4.51); Lymphocyte % 20.4 % (19-41); Mean Corpuscular Hgb 29.9 pg (27.0-32.0); Mean Corpuscular Volume 85.5 fL (80-94); Mean Platelet Vol. 9.1 fl (6.2-12.0); Monocyte# 0.56 X10^3/uL; Monocyte% 10.2 % (0-10); NRBC Flagged by Analyzer 0 % (0-5); Neutrophil # 2.92 X10^3/uL (2.7-7.7); Neutrophil % 53.4 % (47-70); Platelet Count 217 K/mm3 (150-450); RBC Distribution Width CV 12.4 % (11.6-14.6); RBC Distribution Width SD 38.5 fl (35.1-43.9); Red Blood Count 5.05 M/mm3 (4.6-6.2); White Blood Count 5.5 K/mm3 (4.4-11.0)
[2024-08-24 12:24] LABS: ALB/GLOB Ratio 1.5 RATIO (0.9-2.4); AST(SGOT) 18 U/L (<=37); Alanine Aminotransfer ALT/SGPT 13 U/L (<=46); Albumin, Serum 4.1 g/dL (3.4-4.8); Alkaline Phosphatase 79 U/L (40-129); Anion Gap 8 (5-15); BUN 20 mg/dL (4-19); BUN/Creat Ratio 20.7 RATIO (10-20); Carbon Dioxide 25.7 mmol/L (21.0-32.0); Chloride 106 mmol/L (98-108); Creatinine, Serum 0.97 mg/dL (0.70-1.20); EST Glomerular Filtration Rate 90 (>60); Globulin 2.7 g/dL (2.2-4.2); Glucose 109 mg/dL (70-99); Potassium 4.5 mmol/L (3.3-5.1); Protein, Total 6.8 g/dL (5.9-8.4); Sodium Level 140 mmol/L (133-145); Total Bilirubin 0.54 mg/dL (0.00-1.30)
[2024-08-26 10:20] LABS: Cholesterol 176 mg/dL (<=200); High Density Lipoprotein 40 mg/dL; Low Density Lipoprotein Calc. 118 mg/dL; Triglycerides 90 mg/dL; Very Low Density Lipoprotein 18 mg/dL (5-40); cholesterol:hdl ratio screen 4.38
[2024-08-26 10:33] LABS: PSA,Total- Diagnostic < 0.02 ng/mL (0.00-4.00)
== END | disposition home or self-care (01) ==
LOC: LAB 10:33
PROVIDERS: PCP Internal Medicine; Referring Provider Internal Medicine; Visit Provider Internal Medicine
DX: C61 Malignant neoplasm of prostate (principal); E78.5 Hyperlipidemia, unspecified; K21.9 Gastro-esophageal reflux disease without esophagitis
CPT/HCPCS: 36415; 80053; 80061; 84153; 85025